=== PATIENT | male | born 1940 | race Caucasian/White ===

== ENCOUNTER 2020-11-03 11:46 | Outpatient (CLI) | payer MEDICARE, SELFPAY | END 2020-11-03 11:47 | disposition home or self-care (01) | LOC: ANHCOVIDVC 11:46 | PROVIDERS: PCP Family Medicine; Visit Provider Family Medicine | DX: Z23 Encounter for immunization (principal) | CPT/HCPCS: 0001A; 91300 ==

== ENCOUNTER 2020-11-24 11:23 | Outpatient (CLI) | payer MEDICARE, SELFPAY | END 2020-11-24 11:24 | disposition home or self-care (01) | LOC: ANHCOVIDVC 11:23 | PROVIDERS: PCP Family Medicine | DX: Z23 Encounter for immunization (principal) | CPT/HCPCS: 0002A; 91300 ==

== ENCOUNTER 2021-04-15 18:52 | Observation (INO) | payer MEDICARE, SELFPAY ==
--- NOTE | ~2021-04-15 | CT_ITS ---
EXAMINATION: CT abdomen pelvis wo con DATE: 04/15/2021 19:51 INDICATION: Nephrolithiasis presenting with flank pain and decreased urination. TECHNIQUE: Computed tomography (CT) of the abdomen and pelvis was performed without intravenous contr ast. Automated exposure control and iterative reconstruction technique were employed. The dose-length product was 270.40 mGy-cm. COMPARISON: 09/15/2016 FINDINGS: Prominent eventration of the right hemidiaphragm with mild right basilar atelectasis. Heart size is n ormal. Atherosclerotic coronary artery calcifications. Aortic valve calcification. No pericardial or pleural effusion. Small sliding-type hiatal hernia. Cholecystectomy clips at the gallbladder fossa. L iver, spleen, pancreas and bilateral adrenal glands are normal. Postoperative change of prior partial left nephrectomy with suture lines along the lower pole of the left kidney. Bilateral renal cysts me asuring up to 5.7 cm on the right and 2.6 cm on the left. 3 mm nonobstructing stones at the upper jie e of the left kidney and at a middle calyx of the right kidney. 4-5 mm stone at the left ureterovesic ular junction with mild right hydroureteronephrosis. There are couple additional 1 mm and 3 mm likely recently passed bones located slightly more anterior within the immediately adjacent bladder. Prosta tomegaly. There is moderate colonic diverticulosis with a sigmoid predominance. There is no adjacent inflammatory change to suggest diverticulitis. Small bowel and appendix are normal. No free intraper itoneal gas or fluid. No pathologically enlarged abdominal or pelvic lymphadenopathy. There is calcif ied atherosclerosis of the aorta and many of the other arteries. Mild lumbar spondylosis and mild melanie ateral hip osteoarthritis. IMPRESSION: 1. Bilateral nephrolithiasis with obstructing 4-5 mm stone at the right ureterovesicular junction wit h mild right hydroureteronephrosis. 2. Small sliding-type hiatal hernia. 3. Prominent sigmoid diverticulosis. 4. Prostatomegaly. Reviewed, dictated and finalized at location A. IMPRESSION: 1. Bilateral nephrolithiasis with obstructing 4-5 mm stone at the right uretero vesicular junction with mild right hydroureteronephrosis. 2. Small sliding-type hiatal hernia. 3. Prominent sigmoid diverticulosis. 4. Prostatomegaly.
--- NOTE | ~2021-04-15 | XR_ITS ---
EXAMINATION: XR stent kub - surgery DATE: 04/16/2021 14:40 INDICATION: Right ureteral stone extraction and stent placement TECHNIQUE: 4 fluoroscopic images of the abdomen and pelvis were obtained during procedure performed b tanner Garcia. Radiologist was not present for the imaging or procedure. The amount of fluoroscopy time used during this procedure was 0.9 minutes. COMPARISON: CT dated 04/15/2021 FINDINGS: Images demonstrate placement of a right internal ureteral stent with loops formed over the expected l ocation of the right renal pelvis and the bladder. No stones seen along the course of the stent sugge sting extraction of the previously seen stones at the right ureterovesicular junction/bladder. A coup le unchanged small phleboliths in the left hemipelvis. IMPRESSION: 1. Right internal ureteral stent placement in expected position with likely extraction of the previou sly seen right UVJ/bladder stones. See procedure note for further detail. Reviewed, dictated and finalized at location A. IMPRESSION: 1. Right internal ureteral stent placement in expected position with likely ext raction of the previously seen right UVJ/bladder stones. See procedure note for further detail.
[2021-04-15 19:24] VITALS: BP 167/81; PULSE 66; RESP 16; TEMP 36.4; O2SAT 98
[2021-04-15 19:42] LABS: Basophils Percent Auto 0.3 % (0.2-1.2); Eosinophils Absolute Auto 0.3 K/mm3 (0-0.3); Eosinophils Percent Auto 3.3 % (0-4.4); Hematocrit 41.3 % (42.0-52.0); Hemoglobin 13.4 g/dL (14.0-18.0); Immature Granulocyte Absolute 0.04 K/mm3 (0.00-0.031); Immature Granulocyte Percent A 0.4 % (0-0.5); Lymphocytes Absolute Auto 0.98 K/mm3 (0.9-3.2); Lymphocytes Percent Auto 10.8 % (18.3-44.2); Mean Corpuscular HGB Conc 32.4 g/dl (32-36); Mean Corpuscular Hemoglobin 30.9 pg (26-34); Mean Corpuscular Volume 95.2 fl (80-100); Mean Platelet Volume 10.4 fl (7.4-10.4); Monocytes Percent Auto 11.1 % (2.6-8.5); Neutrophils Absolute Auto 6.7 K/mm3 (1.3-6.7); Neutrophils Percent Auto 74.1 % (45.5-73.1); Platelet Count Result 147 k/mm3 (150-375); Red Blood Count 4.34 M/mm3 (4.6-6.20); Red Cell Distribution Width 12.9 % (11.5-14.5); White Blood Count 9.1 K/mm3 (4.5-10.0)
[2021-04-15 19:55] LABS: Anion Gap 6 mmol/L (8-16); Blood Urea Nitrogen 22 mg/dL (9-20); Calcium 9.4 mg/dL (8.4-10.2); Carbon Dioxide 28 mmol/L (22-30); Chloride 107 mmol/L (98-107); Estimated CRCL calculation 47 ml/min; Estimated Glomerular Filt Rate > 60; Glucose 151 mg/dL (65-110); Potassium 4.2 mmol/L (3.4-5.0); Sodium 141 mmol/L (137-145)
[2021-04-15 22:24] VITALS: BP 192/63; PULSE 61; RESP 20; O2SAT 94
--- NOTE | 2021-04-15 22:24 | ED.BACK ---
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 History of kidney stone. Patient denies any fever, chills, or abdominal pain. Patient is fully vaccinated for COVID-19. Related Data Home Medications Medication Instructions Recorded Confirmed amlodipine 5 mg tablet 5 mg PO DAILY 08/09/19 10/28/20 nitroglycerin 0.4 mg sublingual 0.4 mg SUBLINGUAL Q5M PRN 08/09/19 10/28/20 tablet vit C 250 mg-vit E 90 mg-zinc 40 1 tablet PO BID 08/09/19 10/28/20 mg-copper 1 [id number] capsule aspirin 81 mg tablet,delayed 81 mg PO DAILY 08/15/19 10/28/20 release multivitamin 1 tablet PO DAILY 08/15/19 10/28/20 omega-3 fatty acids-fish oil 360 1 cap PO DAILY 08/15/19 10/28/20 mg-1,200 mg capsule vitamin B complex 1 tablet PO DAILY 08/15/19 10/28/20 antiarthritic combination no.2 900 mg PO 10/28/20 10/28/20 mg tablet carvedilol 25 mg tablet 12.5 mg PO Q12H tablet 10/28/20 10/28/20 lisinopril 40 mg tablet 20 mg PO DAILY tablet 10/28/20 10/28/20 Allergies Allergy/AdvReac Type Severity Reaction Status Date / Time No Known Allergies Allergy Verified 04/15/21 19:28 Review of Systems Review of Systems: CONSTITUTIONAL: Denies fever, chills, or sweats. EYES: Denies visual changes, redness, or discharge. ENT: Denies rhinorrhea, congestion, sore throat, or otalgia. CARDIOVASCULAR: Denies chest pain, palpitations, or edema. RESPIRATORY: Denies cough or dyspnea. GASTROINTESTINAL: Denies abdominal pain, nausea, vomiting, or diarrhea. GENITOURINARY: Denies dysuria or hematuria. SKIN: Denies rash or itching. MUSCULOSKELETAL: Denies back pain, joint pain, or myalgia. NEUROLOGIC: Denies headache, numbness, or weakness. PSYCHIATRIC: Denies anxiety or depression. 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 History of kidney cancer History of kidney stones Hypertension with heart disease IBS (irritable bowel syndrome) IFG (impaired fasting glucose) Macular degeneration, age related, nonexudative Neoplasm of left kidney (~2015) Osteoarthritis Thyroid disorder Surgical History Surgical History History of cardiac cath (~04/22/08) History of colonoscopy (~10/17/07) Hx of cholecystectomy (~2007) S/P triple vessel bypass (~08/02/10) Family History Family History Sibling Family history of cardiovascular disease Family history of coronary artery disease Mother Diabetes mellitus Family history of Alzheimer's disease Family history of coronary artery disease Father Family history of lung cancer Social History Social History Smoking status: Never smoker Second hand tobacco smoke exposure: No Alcohol intake: never Substance use: never Substance use type: does not use Gender identity (if verbalized by the patient): Male Exam Narrative: General appearance: Well-developed, well-nourished Skin: Normal color Head: Normocephalic, nontraumatic Eyes: Clear conjunctiva ENT: Oropharynx normal, ears normal, nose normal Neck: Supple, nontender Chest and respiratory: Airway patent, no respiratory distress, no accessory muscle use Heart: Regular rate/rhythm Abdomen: Soft, nontender, no organomegaly, quiet bowel sounds Vascular: Normal peripheral pulses, normal capillary refill. Musculoskeletal: Normal range of motion, nontender back Neurologic: Alert and oriented ?3, RADIOLOGY ORDERLY is normal as tested, no gross motor deficit
[2021-04-15] MEDS: ONDANSETRON INJ 4 MG/2 ML VIAL IV PUSH (23:00)
[2021-04-15] MEDS: SODIUM CHLORIDE 0.9% IV 1,000 ML 500 ML IV CONT (23:00)
[2021-04-15] MEDS: MORPHINE SULFATE (*CRX) 4 MG/ML INJ IV PUSH (23:00)
[2021-04-15] MEDS: KETOROLAC 15 MG/ML VIAL (*BKC) IV PUSH (23:09)
[2021-04-15] MEDS: TAMSULOSIN HCL 0.4 MG CAPSULE PO (23:09)
[2021-04-15 23:44] LABS: Add Urine Microscopic? YES; Appearance Urine Clear (Clear); Bilirubin Urine Negative (Negative); Blood Urine 2+ (Negative); Color Urine Yellow (Yellow); Glucose Urine UA Negative (Negative); Ketones Urine Negative (Negative); Leukocyte Esterase Ur Negative LEU/UL (Negative); Mucus Urine Rare /lpf; Nitrate Urine Negative (Negative); Protein Urine Negative (Negative); RBC Urine 51-75 /hpf (0-2); Specific Grav Ur 1.018 (1.001-1.035); Squamous Epithelial Cell Urine Rare /hpf (Few); Urobilinogen Urine Negative mg/dL (<2.0)
[2021-04-16] VITALS (9 sets, daily range): BP systolic 120–186; BP diastolic 46–78; PULSE 52–68; RESP 11–20; TEMP 36.2–36.8; O2SAT 93–100; BMI 26.0
[2021-04-16] MEDS: TAMSULOSIN HCL 0.4 MG CAPSULE PO (01:04)
--- NOTE | 2021-04-16 02:02 | PC.NURSE ---
This patient, Richie Cantrell, was admitted to 3 Med Surg Room 303-01 @ 01:15 Patient/family oriented to hospital policies and general routines including ID bracelet, bed and alarms, visiting hours, pain management, procedures, bathroom and other care routines, personal items, smoking policy, room service/diet, and visiting hours. Information on how to activate the Rapid Response Team has been discussed. Patient/Family are encouraged to report perceived risks to care and to ask questions if they do not understand what they are told or what they should do.
--- NOTE | 2021-04-16 02:05 | PM.IMHP ---
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 He has a history of kidney stones in the past. He denies any fever chills vomiting. Or abdominal pain. He had similar pain in the past and evaluation at that time was found to have renal cell carcinoma for which he had a partial nephrectomy done in the past. He reports there is no blood in his urine but he felt some difficulty in urination since the pain started. On ER evaluation he had a CT scan done which showed bilateral nephrolithiasis with obstructing 4-5 mm stone at the right ureterovesicular junction with mild right hydro ureteral nephrosis along with prostatomegaly prominent sigmoid diverticulosis and small sliding-type hiatal hernia. His urine does show evidence of microscopic hematuria. Review of Systems Review of Systems: - CONSTITUTIONAL: Denies weight loss, fever and chills. - HEENT: Denies changes in vision and hearing - RESPIRATORY: Denies SOB and cough. - CV: Denies palpitations and CP. - GI: Denies abdominal pain, nausea, vomiting and diarrhea. - : Reports dysuria and urinary frequency. No hematuria reports flank pain - MSK: Denies myalgia and joint pain. - SKIN: Denies rash and pruritus. - NEUROLOGICAL: Denies headache and syncope. - PSYCHIATRIC: Denies recent changes in mood. Denies anxiety and depression. 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 History of kidney cancer History of kidney stones Hypertension with heart disease IBS (irritable bowel syndrome) IFG (impaired fasting glucose) Macular degeneration, age related, nonexudative Neoplasm of left kidney (~2015) Osteoarthritis Thyroid disorder Surgical History Surgical History History of cardiac cath (~04/22/08) History of colonoscopy (~10/17/07) Hx of cholecystectomy (~2007) S/P triple vessel bypass (~08/02/10) Family History Family History Sibling Family history of cardiovascular disease Family history of coronary artery disease Mother Diabetes mellitus Family history of Alzheimer's disease Family history of coronary artery disease Father Family history of lung cancer Social History Social History Smoking status: Never smoker Second hand tobacco smoke exposure: No Alcohol intake: never Substance use: never Substance use type: does not use Gender identity (if verbalized by the patient): Male Meds Home Medications and Allergies Home Medications Medication Instructions Recorded Confirmed Type amlodipine 5 mg tablet 5 mg PO DAILY 08/09/19 10/28/20 History nitroglycerin 0.4 mg sublingual 0.4 mg SUBLINGUAL Q5M PRN 08/09/19 10/28/20 History tablet vit C 250 mg-vit E 90 mg-zinc 40 1 tablet PO BID 08/09/19 10/28/20 History mg-copper 1 [id number] capsule aspirin 81 mg tablet,delayed 81 mg PO DAILY 08/15/19 10/28/20 History release multivitamin 1 tablet PO DAILY 08/15/19 10/28/20 History omega-3 fatty acids-fish oil 360 1 cap PO DAILY 08/15/19 10/28/20 History mg-1,200 mg capsule vitamin B complex 1 tablet PO DAILY 08/15/19 10/28/20 History atorvastatin 20 mg tablet 20 mg PO DAILY #90 tablet 11/15/19 10/28/20 Rx finasteride 5 mg tablet 5 mg PO DAILY #90 tablet 07/23/20 10/28/20 Rx antiarthritic combination no.2 900 mg PO 10/28/20 10/28/20 History mg tablet carvedilol 25 mg tablet 12.5 mg PO Q12H tablet 10/28/20
--- NOTE | 2021-04-16 02:42 | PC.NURSE ---
mayra per Dr. Blair for RN to change resuscitation status per patient's request
[2021-04-16] MEDS: SODIUM CHLORIDE 0.9% IV 1,000 ML 75 ML IV CONT (03:52)
--- NOTE | 2021-04-16 09:54 | WPDURCON ---
Assessment and Plan Assessment and plan (1) Right ureteral stone: Code(s): N20.1 - Calculus of ureter Status: Acute Assessment and Plan: Cystoscopy, right ureteroscopy with stone extraction, possible right ureteral stent placement this morning. Discharge later today, if otherwise medically ready. Urology Consult Note HPI Date Seen: 04/16/21 Requesting Physician: Cheikh Blair MD Primary Care Provider: Jake Granados MD Consult Narrative Narrative: Richie Cantrell is a 80 year old male who passed a ureteral stone spontaneously ~20 years ago, now presents with lower abdominal pain and nausea. He denies fever/chill or gross hematuria. CT-abd/pelvis shows an obstructing 4mm right distal ureteral stone. 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 History of kidney cancer History of kidney stones Hypertension with heart disease IBS (irritable bowel syndrome) IFG (impaired fasting glucose) Macular degeneration, age related, nonexudative Neoplasm of left kidney (~2015) Osteoarthritis Thyroid disorder Surgical History Surgical History History of cardiac cath (~04/22/08) History of colonoscopy (~10/17/07) Hx of cholecystectomy (~2007) S/P triple vessel bypass (~08/02/10) Family History Family History Sibling Family history of cardiovascular disease Family history of coronary artery disease Mother Diabetes mellitus Family history of Alzheimer's disease Family history of coronary artery disease Father Family history of lung cancer Social History Social History Smoking status: Never smoker Second hand tobacco smoke exposure: No Alcohol intake: never Substance use: never Substance use type: does not use Gender identity (if verbalized by the patient): Male Spiritual care concerns: No Meds Home Medications and Allergies Home Medications Medication Instructions Recorded Confirmed Type amlodipine 5 mg tablet 5 mg PO DAILY 08/09/19 04/16/21 History nitroglycerin 0.4 mg sublingual 0.4 mg SUBLINGUAL Q5M PRN 08/09/19 04/16/21 History tablet vit C 250 mg-vit E 90 mg-zinc 40 1 tablet PO BID 08/09/19 04/16/21 History mg-copper 1 sw-[id number] capsule aspirin 81 mg tablet,delayed 81 mg PO DAILY 08/15/19 04/16/21 History release multivitamin 1 tablet PO DAILY 08/15/19 04/16/21 History omega-3 fatty acids-fish oil 360 1 cap PO DAILY 08/15/19 04/16/21 History mg-1,200 mg capsule vitamin B complex 1 tablet PO DAILY 08/15/19 04/16/21 History atorvastatin 20 mg tablet 20 mg PO DAILY #90 tablet 11/15/19 04/16/21 Rx finasteride 5 mg tablet 5 mg PO DAILY #90 tablet 07/23/20 04/16/21 Rx antiarthritic combination no.2 900 900 mg PO DAILY 10/28/20 04/16/21 History mg tablet carvedilol 25 mg tablet 12.5 mg PO Q12H tablet 10/28/20 04/16/21 History lisinopril 40 mg tablet 20 mg PO DAILY tablet 10/28/20 04/16/21 History escitalopram oxalate 10 mg tablet 10 mg PO DAILY #90 tablet 11/19/20 04/16/21 Rx allopurinol 100 mg tablet 100 mg PO DAILY #90 tablet 01/04/21 04/16/21 Rx levothyroxine [Euthyrox] 75 mcg PO DAILY 04/16/21 04/16/21 History Allergies Allergy/AdvReac Type Severity Reaction Status Date / Time No Known Allergies Allergy Verified 04/16/21 02:41 Vital Signs Vital Signs - 24 hr 04/15/21 19:24 04/15/21
--- NOTE | 2021-04-16 09:59 | WPDHPUPDATE1 ---
History and Physical Update Update Date/Time: 04/16/21 09:59 History and Physical has been reviewed, including an updated exam of the patient. There are NO changes in the patient's condition. Risks, benefits, and alternatives have been discussed and questions answered. Patient agrees to proceed with procedure.
--- NOTE | 2021-04-16 12:05 | PC.NURSE ---
pt to OR via stretcher, here to accompany pt
[2021-04-16] MEDS: LACTATED RINGERS 1,000 ML 30 ML IV CONT (12:42)
--- NOTE | 2021-04-16 12:54 | WPDANESEPPF ---
Anes - Initial Pre Proc Eval Procedure: Operation Date: 04/16/21 13:30 Proposed Procedures p Cystoscopy, Right Ureteroscopy with Stone Extraction, Possible Right Ureteral Stent Placement - Naman Reyez MD Date/Time: 04/16/21 12:54 Surgeon: Cheikh Blair MD Pre Op Diagnosis: Left Ureterolithiasis Patient Data Age: 80 Gender: M Height: 1.75 m Weight: 80 kg Last Vital Signs Temp 36.7 C 04/16/21 12:40 Pulse 59 L 04/16/21 12:40 Resp 20 04/16/21 12:40 BP 151/46 H 04/16/21 12:40 Pulse Ox 97 04/16/21 12:40 Allergies Allergy/AdvReac Type Severity Reaction Status Date / Time No Known Allergies Allergy Verified 04/16/21 02:41 Home Medications Medication Instructions Recorded Confirmed Type amlodipine 5 mg tablet 5 mg PO DAILY 08/09/19 04/16/21 History nitroglycerin 0.4 mg sublingual 0.4 mg SUBLINGUAL Q5M PRN 08/09/19 04/16/21 History tablet vit C 250 mg-vit E 90 mg-zinc 40 1 tablet PO BID 08/09/19 04/16/21 History mg-copper 1 [id number]-mdirsb-mdueri capsule aspirin 81 mg tablet,delayed 81 mg PO DAILY 08/15/19 04/16/21 History release multivitamin 1 tablet PO DAILY 08/15/19 04/16/21 History omega-3 fatty acids-fish oil 360 1 cap PO DAILY 08/15/19 04/16/21 History mg-1,200 mg capsule vitamin B complex 1 tablet PO DAILY 08/15/19 04/16/21 History atorvastatin 20 mg tablet 20 mg PO DAILY #90 tablet 11/15/19 04/16/21 Rx finasteride 5 mg tablet 5 mg PO DAILY #90 tablet 07/23/20 04/16/21 Rx antiarthritic combination no.2 900 900 mg PO DAILY 10/28/20 04/16/21 History mg tablet carvedilol 25 mg tablet 12.5 mg PO Q12H tablet 10/28/20 04/16/21 History lisinopril 40 mg tablet 20 mg PO DAILY tablet 10/28/20 04/16/21 History escitalopram oxalate 10 mg tablet 10 mg PO DAILY #90 tablet 11/19/20 04/16/21 Rx allopurinol 100 mg tablet 100 mg PO DAILY #90 tablet 01/04/21 04/16/21 Rx levothyroxine [Euthyrox] 75 mcg PO DAILY 04/16/21 04/16/21 History Laboratory Tests 04/15/21 04/15/21 04/15/21 19:34 19:34 23:19 WBC 9.1 K/mm3 K/mm3 (4.5-10.0) RBC 4.34 M/mm3 L M/mm3 (4.6-6.20) Hgb 13.4 g/dL L g/dL (14.0-18.0) Hct 41.3 % L % (42.0-52.0) MCV 95.2 fl fl (80-100) MCH 30.9 pg pg (26-34) MCHC 32.4 g/dl g/dl (32-36) RDW 12.9 % % (11.5-14.5) Plt Count 147 k/mm3 L k/mm3 (150-375) MPV 10.4 fl fl (7.4-10.4) Immature Gran % (Auto) 0.4 % % (0-0.5) Neut % (Auto) 74.1 % H % (45.5-73.1) Lymph % (Auto) 10.8 % L % (18.3-44.2) Fountain % (Auto) 11.1 % H % (2.6-8.5) Eos % (Auto) 3.3 % % (0-4.4) Baso % (Auto) 0.3 % % (0.2-1.2) Lymph # (Auto) 0.98 K/mm3 K/mm3 (0.9-3.2) Fountain # (Auto) 1.0 K/mm3 H K/mm3 (0.1-0.6) Eos # (Auto) 0.3 K/mm3 K/mm3 (0-0.3) Baso # (Auto) 0.0 K/mm3 K/mm3 (0.0-0.1) Abs Immat Gran (auto) 0.04 K/mm3 H K/mm3 (0.00-0.031) Absolute Neuts (auto) 6.7 K/mm3 K/mm3 (1.3-6.7) Absolute Nucleated RBC 0.0 K/mm3 K/mm3 (0.0-0.012) Nucleated RBC % 0.0 % % (0.0-0.2) % Immature Plt Fraction 3.0 % % (0.9-11.2) Sodium 141 mmol/L mmol/L (137-145) Potassium 4.2 mmol/L mmol/L (3.4-5.0) Chloride 107 mmol/L mmol/L (98-107) Carbon Dioxide 28 mmol/L mmol/L (22-30) Anion Gap 6 mmol/L L mmol/L (8-16) BUN 22 mg/dL H mg/dL (9-20) Creatinine 1.10 mg/dL mg/dL (0.7-1.3) Estim Creat Clear Calc 47 ml/min ml/min Estimated GFR > 60 (59 - ) Glucose 151 mg/dL H mg/dL (65-110) Calcium 9.4 mg/dL mg/dL (8.4-10.2) Urine Color Yellow (Yellow) Urine Appearance Clear (Clear) Urine pH 6.0 (5.0-9.0) Ur Specific [place] 1.018 (1.001-1.035) Urine Protein Negative mg/
--- NOTE | 2021-04-16 14:40 | W.PM.PROC2 ---
Procedure Note - Detailed Date of Procedure 04/16/21 Pre-op Diagnosis Right Ureteral Stone Post-op Diagnosis same Procedure Performed Cystoscopy, right ureteroscopy with stone extraction and right ureteral stent placement Surgeon Naman Reyez MD Anesthesia general Description of Procedure The patient was brought to the operative suite where he is prepped and draped in a routine sterile fashion while in the dorsal lithotomy position after the uneventful induction of a general LMA anesthetic. A 19F rigid cystoscope was placed in the bladder. There are no urethral strictures. His prostatic urethra measures, approximately, 2.5cm with small median lobe enlargement. The bladder mucosa was endoscopically normal without hyperemia or neoplasm. There was a single, orthotopic ureteral orifice bilaterally. A 0.035 glidewire was advanced into the right renal pelvis under fluoroscopy. The distal ureter was dilated with an 8F/10F ureteral dilator. Ureteroscopy was undertaken with a short tapered semi-rigid ureteroscope. There was significant ureteral edema and, because of that, the size of the stone and the extent of manipulation, I opted to redilate with a 10cm ureteral balloon. Upon repeat ureteroscopy I was able to extract the stone using a 1.9F Escape, disposable stone basket. Due to the extent of this manipulation I did place a 4.8F double-J ureteral stent. The proximal coil of the stent was confirmed to be in the renal pelvis and the distal coil in the bladder. The patient's bladder was emptied and he was taken to the recovery room having tolerated this procedure well. Estimated Blood Loss 0 Urine Output 400 Packing No Pathology yes Complications No immediate complications Condition stable Disposition PACU
--- NOTE | 2021-04-16 15:29 | SUR.PHASEI ---
1530 sbar faxed floor notified
--- NOTE | 2021-04-16 15:40 | PC.NURSE ---
pt returned from PACU, reviewed plan of care with pt and
--- NOTE | 2021-04-16 18:10 | PM.SD2 ---
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 He has a history of kidney stones in the past. He denies any fever chills vomiting. Or abdominal pain. He had similar pain in the past and evaluation at that time was found to have renal cell carcinoma for which he had a partial nephrectomy done in the past. He reports there is no blood in his urine but he felt some difficulty in urination since the pain started. On ER evaluation he had a CT scan done which showed bilateral nephrolithiasis with obstructing 4-5 mm stone at the right ureterovesicular junction with mild right hydro ureteral nephrosis along with prostatomegaly prominent sigmoid diverticulosis and small sliding-type hiatal hernia. His urine does show evidence of microscopic hematuria. 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 History of kidney cancer History of kidney stones Hypertension with heart disease IBS (irritable bowel syndrome) IFG (impaired fasting glucose) Macular degeneration, age related, nonexudative Neoplasm of left kidney (~2015) Osteoarthritis Thyroid disorder Surgical History Surgical History History of cardiac cath (~04/22/08) History of colonoscopy (~10/17/07) Hx of cholecystectomy (~2007) S/P triple vessel bypass (~08/02/10) Family History Family History Sibling Family history of cardiovascular disease Family history of coronary artery disease Mother Diabetes mellitus Family history of Alzheimer's disease Family history of coronary artery disease Father Family history of lung cancer Social History Social History Smoking status: Never smoker Second hand tobacco smoke exposure: No Alcohol intake: never Substance use: never Substance use type: does not use Gender identity (if verbalized by the patient): Male Spiritual care concerns: No Same Day Admit/Disch: Med Pre-admit Medications Home Medications Medication Instructions Recorded Confirmed Type amlodipine 5 mg tablet 5 mg PO DAILY 08/09/19 04/16/21 History nitroglycerin 0.4 mg sublingual 0.4 mg SUBLINGUAL Q5M PRN 08/09/19 04/16/21 History tablet vit C 250 mg-vit E 90 mg-zinc 40 1 tablet PO BID 08/09/19 04/16/21 History mg-copper 1 vh-vykwkh-ochoda capsule aspirin 81 mg tablet,delayed 81 mg PO DAILY 08/15/19 04/16/21 History release multivitamin 1 tablet PO DAILY 08/15/19 04/16/21 History omega-3 fatty acids-fish oil 360 1 cap PO DAILY 08/15/19 04/16/21 History mg-1,200 mg capsule vitamin B complex 1 tablet PO DAILY 08/15/19 04/16/21 History atorvastatin 20 mg tablet 20 mg PO DAILY #90 tablet 11/15/19 04/16/21 Rx finasteride 5 mg tablet 5 mg PO DAILY #90 tablet 07/23/20 04/16/21 Rx antiarthritic combination no.2 900 900 mg PO DAILY 10/28/20 04/16/21 History mg tablet carvedilol 25 mg tablet 12.5 mg PO Q12H tablet 10/28/20 04/16/21 History lisinopril 40 mg tablet 20 mg PO DAILY tablet 10/28/20 04/16/21 History escitalopram oxalate 10 mg tablet 10 mg PO DAILY #90 tablet 11/19/20 04/16/21 Rx allopurinol 100 mg tablet 100 mg PO DAILY #90 tablet 01/04/21 04/16/21 Rx levothyroxine [Euthyrox] 75 mcg PO DAILY 04/16/21 04/16/21 History Exam Narrative: GENERAL: The patient is well developed, not in acute distress HEENT: Nonicteric sclerae, PERRLA, EOMI. Oropharynx clear. Moist mucous membranes. Conjunctivae appear well perfused. CHEST: Chest wall is nontender. HEART: Regular rate and rhythm without murmur, rubs, or gallops LUNGS: Clear to auscultation bilaterally. no respiratory distress ABDOMEN: Soft, po
== END 2021-04-16 18:43 | disposition home or self-care (01) ==
LOC: ANHED 04-16 00:22 → ANH3MEDSUR 04-16 02:44
PROVIDERS: Urology; Admitting Provider Internal Medicine; Emergency Provider Emergency Medicine; PCP Family Medicine; Visit Provider Hospitalist
PROC: (CPT 52352; principal; 2021-04-16 13:30)
DX: N13.2 Hydronephrosis with renal and ureteral calculous obstruction (principal); I11.9 Hypertensive heart disease without heart failure; K58.9 Irritable bowel syndrome, unspecified; H35.30 Unspecified macular degeneration; I25.10 Atherosclerotic heart disease of native coronary artery without angina pectoris; E03.9 Hypothyroidism, unspecified; E78.2 Mixed hyperlipidemia; F41.9 Anxiety disorder, unspecified; Z79.82 Long term (current) use of aspirin; Z95.1 Presence of aortocoronary bypass graft; Z85.528 Personal history of other malignant neoplasm of kidney; Z90.5 Acquired absence of kidney
CPT/HCPCS: 52332; 52352; 36415; 74176; 80048; 81001; 82365; 85025; 85055; 88300; 96361; 96374; 96375; 99285; A9270; C1726; C1769; C2617; G0378; J1100; J1885; J2270; J2405; J2704; J3010; J7030; J7120

== ENCOUNTER 2021-05-19 15:31 | Emergency (ER) | payer MEDICARE, SELFPAY ==
--- NOTE | 2021-05-19 15:36 | ED.SKABFB ---
HPI - Skin/Abscess/Foreign Bdy General Chief complaint: Skin/Abscess/Foreign Body Stated complaint: Insect Bite Lt Forearm Time Seen by Provider: 05/19/21 15:37 Source: patient Mode of arrival: ambulatory Limitations: no limitations History of Present Illness HPI narrative: Richie Cantrell is an 80 yo male with a PMH of HTN, gout, high cholesterol, depression, BPH, hypothyroid, who [facility] with a insect bite of his left forearm. 1 cm mildly indurated area on left forearm on the dorsum side; has been using hydrocortisone and has not significantly improved since he first noticed it on Monday Related Data Home Medications Medication Instructions Recorded Confirmed amlodipine 5 mg tablet 5 mg PO DAILY 08/09/19 05/19/21 nitroglycerin 0.4 mg sublingual 0.4 mg SUBLINGUAL Q5M PRN 08/09/19 05/19/21 tablet aspirin 81 mg tablet,delayed 81 mg PO DAILY 08/15/19 05/19/21 release multivitamin 1 tablet PO DAILY 08/15/19 05/19/21 antiarthritic combination no.2 900 900 mg PO DAILY 10/28/20 05/19/21 mg tablet carvedilol 25 mg tablet 12.5 mg PO Q12H tablet 10/28/20 05/19/21 lisinopril 40 mg tablet 20 mg PO DAILY tablet 10/28/20 05/19/21 levothyroxine [Euthyrox] 75 mcg PO DAILY 04/16/21 05/19/21 vit C,V-Ww-ssmth-lutein-zeaxan 1 tablet PO BID 05/19/21 05/19/21 [PreserVision AREDS-2] Allergies Allergy/AdvReac Type Severity Reaction Status Date / Time No Known Allergies Allergy Verified 05/19/21 15:37 Review of Systems Review of Systems: CONSTITUTIONAL: Denies fever, chills, sweats. EYES: Denies visual changes, redness, discharge. ENT: Denies rhinorrhea, congestion, sore throat, otalgia. CARDIOVASCULAR: Denies chest pain, palpitations, edema. RESPIRATORY: Denies dyspnea, wheezing, cough GASTROINTESTINAL: Denies abdominal pain, nausea, vomiting, diarrhea. GENITOURINARY: Denies dysuria, hematuria, abnormal discharge SKIN: Denies rash or itching. 1 cm indurated lesion on left forearm dorsum side-concerned is a spider bite NEUROLOGIC: Denies numbness, or focal weakness. PSYCHIATRIC: Denies anxiety or depression. 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 History of kidney cancer History of kidney stones Hypertension with heart disease IBS (irritable bowel syndrome) IFG (impaired fasting glucose) Macular degeneration, age related, nonexudative Neoplasm of left kidney (~2015) Osteoarthritis Thyroid disorder Surgical History Surgical History History of cardiac cath (~04/22/08) History of colonoscopy (~10/17/07) Hx of cholecystectomy (~2007) S/P triple vessel bypass (~08/02/10) Family History Family History Sibling Family history of cardiovascular disease Family history of coronary artery disease Mother Diabetes mellitus Family history of Alzheimer's disease Family history of coronary artery disease Father Family history of lung cancer Social History Social History Smoking status: Never smoker Second hand tobacco smoke exposure: Yes Alcohol intake: never Substance use: never Substance use type: does not use Gender identity (if verbalized by the patient): Male Sexual Orientation (if Verbalized by the Patient): Straight or Heterosexual Spiritual care concerns: No Comments At time of signature, I agree with nursing past medical, surgical, social and family history. There is no relevant family history pertinent to the presenting complaint. Exam Narrative: GENERAL: This is a well-nourished, well-developed patient, in mild distress. HEAD: normocephalic, atraumatic. EYES: Sclera clear/white. Vision is grossly intact. EARS: External ears normal. Hearing grossly intact. NOSE: External nose normal without nasal d
[2021-05-19 15:41] VITALS: BP 164/61; PULSE 61; RESP 20; TEMP 36.6
== END 2021-05-19 16:20 | disposition home or self-care (01) ==
PROVIDERS: Emergency Provider Nurse Practitioner; PCP Family Medicine
DX: L98.9 Disorder of the skin and subcutaneous tissue, unspecified (principal); E03.9 Hypothyroidism, unspecified; I11.9 Hypertensive heart disease without heart failure; Z79.82 Long term (current) use of aspirin
CPT/HCPCS: 99213; G0463

== ENCOUNTER 2021-07-06 09:51 | Outpatient (CLI) | payer MEDICARE, SELFPAY ==
--- NOTE | ~2021-07-06 | XR_ITS ---
EXAMINATION: XR abdomen/kub 1V INDICATION: Calculus of kidney with calculus ureter TECHNIQUE: Supine views of the abdomen were obtained on 2 radiographs. COMPARISON: 08/24/2015; CT, 04/15/2021 FINDINGS: There is a 5 mm stone of the right kidney stones of the left kidney measure up to 4 mm. No definite ureteral stones are identified. There are phleboliths of the left pelvis. The bowel gas mahesh rosario is normal. A moderate volume of colonic stool is present. There is an area of calcified fat necro sis right mid abdomen. IMPRESSION: 1. Bilateral nephrolithiasis. Reviewed, dictated and finalized at location B.
== END 2021-07-06 09:52 | disposition home or self-care (01) ==
LOC: ANHIMG 09:55
PROVIDERS: PCP Family Medicine; Visit Provider Urology
DX: N20.0 Calculus of kidney (principal)
CPT/HCPCS: 74018

== ENCOUNTER 2021-09-02 07:29 | Outpatient (CLI) | payer MEDICARE, SELFPAY ==
--- NOTE | ~2021-09-02 | US_ITS ---
EXAMINATION: US soft tissue abdomen EXAM DATE: 09/02/2021 08:17 INDICATION: K43.2 - Incisional hernia without obstruction or gangrene. TECHNIQUE: Multiple grayscale and Doppler images of the right lower quadrant soft tissue area of conc rosario were obtained (by a technologist who performed the scan) and subsequently reviewed. Correlation i s made to CT scan 04/15/2021. FINDINGS: No abdominal wall defect, or any or other sonographic abnormality identified at the area of concern. IMPRESSION: 1. Unremarkable ultrasound exam. Reviewed, dictated and finalized at location A. NDER LOADER
== END 2021-09-02 07:30 | disposition home or self-care (01) ==
LOC: ANHIMG 07:31
PROVIDERS: PCP Family Medicine; Visit Provider Family Medicine
DX: K43.2 Incisional hernia without obstruction or gangrene (principal); R19.01 Right upper quadrant abdominal swelling, mass and lump
CPT/HCPCS: 76705

== ENCOUNTER 2022-04-04 10:47 | Emergency (ER) | payer MEDICARE, SELFPAY ==
--- NOTE | 2022-04-04 11:07 | ED.NAVMDI ---
HPI - Nausea/Vomiting/Diarrhea General Chief complaint: Nausea/Vomiting/Diarrhea Stated complaint: diarrhea Time Seen by Provider: 04/04/22 11:30 Source: patient Mode of arrival: ambulatory Limitations: no limitations History of Present Illness HPI Narrative: Mr. Cantrell is a an 81-year-old male patient presenting to the clinic today with complaints of diarrhea x4 days. He also reports some stomach cramping prior to diarrhea episodes. States he has eaten lightly the last couple days and still having diarrhea every time he eats. He is having approximately 7-8 stools per day day. He denies any fever or chills. He rates his pain currently a 3 out of 10 and says it is a dull ache. He denies any nausea or vomiting. He is passing gas cautiously. Reports that he was outside prior to this starting collecting rain water with a shop vac so he feels as though he may have gotten a bacterial infection in his intestines. He denies feeling bloated. Related Data Home Medications Medication Instructions Recorded Confirmed nitroglycerin 0.4 mg sublingual 0.4 mg sublingual Q5M PRN Chest 08/09/19 04/04/22 tablet (Nitrostat) Pain aspirin 81 mg tablet,delayed 81 mg PO DAILY 08/15/19 04/04/22 release Allergies Allergy/AdvReac Type Severity Reaction Status Date / Time No Known Allergies Allergy Verified 04/04/22 11:26 Review of Systems Review of Systems: Pertinent positives per HPI. Patient denies any fever, chills, rash, headache, visual changes, dizziness, cough, runny nose, sore throat, shortness of breath, chest pain, palpitations, nausea, vomiting, constipation, or any urinary issues. 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 History of kidney cancer History of kidney stones Hypertension with heart disease IBS (irritable bowel syndrome) IFG (impaired fasting glucose) Macular degeneration, age related, nonexudative Neoplasm of left kidney (~2015) Osteoarthritis Thyroid disorder Surgical History Surgical History History of cardiac cath (~04/22/08) History of colonoscopy (~10/17/07) Hx of cholecystectomy (~2007) S/P triple vessel bypass (~08/02/10) Family History Family History Sibling Family history of cardiovascular disease Family history of coronary artery disease Mother Diabetes mellitus Family history of Alzheimer's disease Family history of coronary artery disease Father Family history of lung cancer Social History Social History Smoking status: Never smoker Second hand tobacco smoke exposure: Yes Alcohol intake: never Substance use: never Substance use type: does not use Gender identity (if verbalized by the patient): Male Sexual Orientation (if Verbalized by the Patient): Straight or Heterosexual Spiritual care concerns: No Comments At the time of my signature, I reviewed and agree with the nursing past medical, surgical, social, and family history. There is no relevant family history pertinent to the patient complaint. Exam Narrative: General: Well-developed, well nourished, in no apparent distress. Head: Normocephalic, atraumatic. Cardio: Regular rate and rhythm, s1 and s2 normal, no murmur appreciated. Resp: Clear to auscultation bilaterally, no rhonchi, rales, wheezing or rubs. Abdomen: Soft, pliable, bowel sounds present in all quadrants, mild general tenderness to palpation to upper and lower quadrants, no organomegly, no CVAT tenderness. Course Course Emergency Course: Portions of this record may have been created with voice recognition software. Level of Care: Express Care Visit Vital Signs Vital signs: Vital signs reviewed MDM - Nausea/Vomiting/Diarrhea MDM Narrati
[2022-04-04 11:13] VITALS: BP 114/47; PULSE 63; RESP 18; TEMP 36.3; O2SAT 97
== END 2022-04-04 11:50 | disposition home or self-care (01) ==
PROVIDERS: Emergency Provider Nurse Practitioner Family; PCP Family Medicine
DX: K52.9 Noninfective gastroenteritis and colitis, unspecified (principal); Z85.528 Personal history of other malignant neoplasm of kidney; I11.9 Hypertensive heart disease without heart failure; R73.01 Impaired fasting glucose; H35.30 Unspecified macular degeneration; Z95.1 Presence of aortocoronary bypass graft
CPT/HCPCS: 99213; G0463

== ENCOUNTER 2022-04-07 10:54 | Outpatient (CLI) | payer MEDICARE, SELFPAY ==
--- NOTE | ~2022-04-07 | CT_ITS ---
EXAMINATION: CT abdomen pelvis wo con DATE: 04/07/2022 11:30 INDICATION: Left lower quadrant abdominal pain. TECHNIQUE: Computed tomography (CT) of the abdomen and pelvis was performed without intravenous contr ast. Automated exposure control and iterative reconstruction technique were employed. The dose-length product was 533.91 mGy-cm. COMPARISON: CT abdomen and pelvis 04/15/2021 FINDINGS: The visualized portions of the lung bases demonstrate mild atelectasis. No pleural effusion . The heart size is normal. There are coronary artery calcifications. There are changes of coronary a rtery bypass grafting. No pericardial effusion. There is a small sliding hiatal hernia. The liver is normal. There are changes of cholecystectomy. The spleen, pancreas, and adrenal glands are normal. Th ere are cysts in the kidneys measuring up to 5.4 cm on the right. There are 2 stones in right kidney with the larger measuring 4 mm. There are changes of partial left nephrectomy. There are approximatel y 5 stones in left kidney measuring up to 5 mm. The prostate is severely enlarged. There are scattere d diverticula in the colon. There is wall thickening of the sigmoid colon with surrounding fat strand ing. There are no dilated loops of bowel. The appendix is normal. There are no pathologically enlarge d lymph nodes. There is no free intraperitoneal fluid. There is a left inguinal hernia containing fat . There is mild lumbar spondylosis. IMPRESSION: 1. Sigmoid colitis. Reviewed, dictated and finalized at location A. IMPRESSION: 1. Sigmoid colitis.
== END 2022-04-07 10:55 | disposition home or self-care (01) ==
PROVIDERS: PCP Family Medicine; Visit Provider Physician Assistant
DX: R10.9 Unspecified abdominal pain (principal); M47.816 Spondylosis without myelopathy or radiculopathy, lumbar region; R19.7 Diarrhea, unspecified; I25.10 Atherosclerotic heart disease of native coronary artery without angina pectoris; K52.89 Other specified noninfective gastroenteritis and colitis; K40.90 Unilateral inguinal hernia, without obstruction or gangrene, not specified as recurrent; N40.0 Benign prostatic hyperplasia without lower urinary tract symptoms; Z90.49 Acquired absence of other specified parts of digestive tract; K44.9 Diaphragmatic hernia without obstruction or gangrene
CPT/HCPCS: 74176

== ENCOUNTER 2022-09-02 14:55 | Outpatient (CLI) | payer MEDICARE, SELFPAY ==
--- NOTE | ~2022-09-02 | XR_ITS ---
EXAMINATION: XR abdomen/kub 1V DATE: 09/02/2022 15:19 INDICATION: Personal history of urinary calculi. TECHNIQUE: A supine view of the abdomen on 2 radiographs was obtained. COMPARISON: CT abdomen and pelvis 04/07/2022 FINDINGS: There are no dilated loops of bowel. There is a large volume of stool in the colon. Surgica l clips in the right upper quadrant are likely from cholecystectomy. The kidneys are obscured by mylene l. There is a 4 mm stone in right kidney. There are 5 mm and 3 mm stones in left kidney. There are ph leboliths in the pelvis. IMPRESSION: 1. Bilateral kidney stones. Reviewed, dictated and finalized at location A. L BEARING DRILLER IMPRESSION: 1. Bilateral kidney stones.
[2022-09-02 15:35] LABS: Add Urine Microscopic? NO; Appearance Urine Clear (Clear); Bilirubin Urine Negative (Negative); Blood Urine Negative (Negative); Color Urine Yellow (Yellow); Glucose Urine UA Negative (Negative); Ketones Urine Negative (Negative); Leukocyte Esterase Ur Negative LEU/UL (NEGATIVE); Nitrate Urine Negative (Negative); Protein Urine Negative (Negative); Specific Grav Ur 1.025 (1.001-1.035); Urobilinogen Urine 0.2 mg/dL (<2.0)
== END 2022-09-02 14:56 | disposition home or self-care (01) ==
PROVIDERS: PCP Family Medicine; Visit Provider Physician Assistant
DX: R10.9 Unspecified abdominal pain (principal); N20.0 Calculus of kidney
CPT/HCPCS: 74018; 81003

== ENCOUNTER 2022-12-01 15:42 | Emergency (ER) | payer MEDICARE, SELFPAY ==
[2022-12-01 15:50] VITALS: BP 143/60; PULSE 58; RESP 18; TEMP 36.6; O2SAT 97
--- NOTE | 2022-12-01 15:57 | ED.URI ---
HPI - URI/Sore Throat General Chief Complaint: Upper Respiratory Infection Stated Complaint: Cough,Congestion Time Seen by Provider: 12/01/22 15:57 Source: patient, RN notes reviewed and old records reviewed Mode of arrival: ambulatory Limitations: no limitations History of Present Illness HPI Narrative: 82-year-old male presents to the [facility] with complaints of cough and sinus congestion for 3 weeks. Had tried some Tylenol cold medicine. Denies any chest pain or shortness of breath. Denies fevers. Related Data Home Medications Medication Instructions Recorded Confirmed aspirin 81 mg tablet,delayed 81 mg PO DAILY 08/15/19 12/01/22 release B-complex with vitamin C 1 tablet PO DAILY 06/22/22 12/01/22 antiarthritic combination no.2 900 See Rx Instructions PO .COMPLEX 06/22/22 12/01/22 mg tablet (glucosamine-chondroitin) vitamins A,C,Z-ialj-edracj 4,296 1 cap PO BID 06/22/22 12/01/22 mcg-226 mg-90 mg capsule (PreserVision AREDS) Allergies Allergy/AdvReac Type Severity Reaction Status Date / Time No Known Allergies Allergy Verified 12/01/22 16:01 Review of Systems Review of Systems: All systems reviewed & are unremarkable except as noted in HPI and below Constitutional: Constitutional: Reports no additional constitutional complaints Eyes: Eyes: Reports no additional eye complaints ENT: Reports as per HPI and Reports nasal congestion Cardiovascular: Cardiovascular: Reports no additional cardiovascular complaints, Denies chest pain and Denies dyspnea Respiratory: Respiratory: Reports as per HPI, Denies chest congestion, Reports cough and Denies dyspnea Gastrointestinal: Gastrointestinal: Reports no additional gastrointestinal complaints, Denies abdominal pain, Denies nausea and Denies vomiting Musculoskeletal: Musculoskeletal: Reports no additional musculoskeletal complaints Integumentary/Breasts: Skin/Breast: Reports system reviewed and no additional complaints, except as docu Neurologic: Reports system reviewed and no additional complaints, except as documented Psychiatric: Psychiatric: Reports no additional psychiatric complaints Allergic/Immunologic: Allergic/Immunologic: Reports no additional allergic/immunologic complaints PMFSH Past Medical History Medical History Anxiety 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 History of kidney cancer History of kidney stones Hypertension with heart disease IBS (irritable bowel syndrome) IFG (impaired fasting glucose) Macular degeneration, age related, nonexudative Neoplasm of left kidney (~2015) Osteoarthritis Thyroid disorder Surgical History Surgical History History of cardiac cath (~04/22/08) History of colonoscopy (~10/17/07) Hx of cholecystectomy (~2007) S/P triple vessel bypass (~08/02/10) Family History Family History Sibling Family history of cardiovascular disease Family history of coronary artery disease Mother Diabetes mellitus Family history of Alzheimer's disease Family history of coronary artery disease Father Family history of lung cancer Social History Social History Smoking status: Never smoker Second hand tobacco smoke exposure: Yes Alcohol intake: never Substance use: never Substance use type: does not use Living arrangements: with family Occupation/Education: retired Gender identity (if verbalized by the patient): Male Sexual Orientation (if Verbalized by the Patient): Straight or Heterosexual Spiritual care concerns: No Comments At the time of my signature, I reviewed and agree with the nursing past medical, surgical, social, and family history. There is no relevant family history pertinent to the patient complaint. Exam Const: General: cooperative, healthy appearing,
== END 2022-12-01 16:10 | disposition home or self-care (01) ==
PROVIDERS: Emergency Provider Nurse Practitioner; PCP Family Medicine
DX: J32.9 Chronic sinusitis, unspecified (principal); J40 Bronchitis, not specified as acute or chronic; I10 Essential (primary) hypertension; R73.01 Impaired fasting glucose; M19.90 Unspecified osteoarthritis, unspecified site; E07.9 Disorder of thyroid, unspecified; H35.30 Unspecified macular degeneration; F41.9 Anxiety disorder, unspecified; Z85.528 Personal history of other malignant neoplasm of kidney; Z85.840 Personal history of malignant neoplasm of eye; Z95.1 Presence of aortocoronary bypass graft; Z79.82 Long term (current) use of aspirin
CPT/HCPCS: 99213; G0463

== ENCOUNTER 2023-03-17 14:57 | Outpatient (CLI) | payer MEDICARE, SELFPAY ==
--- NOTE | ~2023-03-17 | XR_ITS ---
EXAMINATION: XR abdomen/kub 1V DATE: 03/17/2023 15:13 INDICATION: Calculus of kidney. Calculus of ureter. TECHNIQUE: A supine view of the abdomen on 2 radiographs was obtained. COMPARISON: CT abdomen and pelvis 04/07/2022, abdomen radiographs 09/02/2022 FINDINGS: There are no dilated loops of bowel. There is a large volume of stool in the colon. There a re 5 mm and 3 mm stones in left kidney. There are phleboliths in left pelvis. IMPRESSION: 1. Left kidney stones. Reviewed, dictated and finalized at location E. IMPRESSION: 1. Left kidney stones.
== END 2023-03-17 14:58 | disposition home or self-care (01) ==
PROVIDERS: PCP Family Medicine; Visit Provider Urology
DX: N20.2 Calculus of kidney with calculus of ureter (principal)
CPT/HCPCS: 74018

== ENCOUNTER 2023-07-31 10:52 | Emergency (ER) | payer MEDICARE, SELFPAY ==
--- NOTE | ~2023-07-31 | XR_ITS ---
XR chest 2V 07/31/2023 11:20 Indication: Cough for one month Procedure: 2 view chest Comparison: 11/17/2017 Findings: Status post median sternotomy. Heart size normal. Patchy bilateral infiltrates. Elevated ri ght diaphragm. No pneumothorax. No acute osseous abnormality. Impression: 1: Patchy bilateral infiltrates, consistent with pneumonia. Reviewed, dictated and finalized at location B. INSPECTOR Impression: 1: Patchy bilateral infiltrates, consistent with pneumonia.
[2023-07-31 10:59] VITALS: BP 106/47; PULSE 63; RESP 16; TEMP 35.7; O2SAT 98
--- NOTE | 2023-07-31 11:29 | ED.URI ---
HPI - URI/Sore Throat General Chief Complaint: Upper Respiratory Infection Stated Complaint: Cough Time Seen by Provider: 07/31/23 11:23 Source: patient and RN notes reviewed Mode of arrival: ambulatory Limitations: no limitations History of Present Illness HPI Narrative: Patient presents today complaining of a one-month history of cough. He was diagnosed with COVID 1 month ago and states he has a persistent cough. Denies shortness of breath or recent fever. He has been taking Robitussin DM and using cough drops with little relief. No history of asthma or COPD. Related Data Home Medications Medication Instructions Recorded Confirmed aspirin 81 mg tablet,delayed 81 mg PO DAILY 08/15/19 07/31/23 release B-complex with vitamin C 1 tablet PO DAILY 06/22/22 07/31/23 antiarthritic combination no.2 900 See Rx Instructions PO .COMPLEX 06/22/22 07/31/23 mg tablet (glucosamine-chondroitin) vitamins A,C,S-elky-ibmqdp 4,296 1 cap PO BID 06/22/22 07/31/23 mcg-226 mg-90 mg capsule (PreserVision AREDS) Allergies Allergy/AdvReac Type Severity Reaction Status Date / Time No Known Allergies Allergy Verified 07/31/23 11:00 Review of Systems Review of Systems: CONSTITUTIONAL: Denies body aches, fever, chills, or sweats. EYES: Denies visual changes, redness, or discharge. ENT: Denies rhinorrhea, congestion, sore throat, or otalgia. CARDIOVASCULAR: Denies chest pain, palpitations, or edema. RESPIRATORY: Denies dyspnea.+ cough GASTROINTESTINAL: Denies abdominal pain, nausea, vomiting, or diarrhea. GENITOURINARY: Denies dysuria or hematuria. SKIN: Denies rash, itching, or wounds. MUSCULOSKELETAL: Denies back pain, joint pain, or myalgia. NEUROLOGIC: Denies headache, numbness, tingling, or weakness. PSYCH: Denies depression or anxiety. 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 History of kidney cancer History of kidney stones Hypertension with heart disease IBS (irritable bowel syndrome) IFG (impaired fasting glucose) Macular degeneration, age related, nonexudative Neoplasm of left kidney (~2015) Osteoarthritis Thyroid disorder Surgical History Surgical History History of cardiac cath (~04/22/08) History of colonoscopy (~10/17/07) Hx of cholecystectomy (~2007) S/P triple vessel bypass (~08/02/10) Family History Family History Sibling Family history of cardiovascular disease Family history of coronary artery disease Mother Diabetes mellitus Family history of Alzheimer's disease Family history of coronary artery disease Father Family history of lung cancer Social History Social History Smoking status: Never smoker Second hand tobacco smoke exposure: Yes Alcohol intake: never Substance use: never Substance use type: does not use Living arrangements: with family Occupation/Education: retired Gender identity (if verbalized by the patient): Male Sexual Orientation (if Verbalized by the Patient): Straight or Heterosexual Spiritual care concerns: No Comments At time of signature, I have reviewed and agree with nursing past medical, surgical, social and family history unless otherwise noted. Please see nursing chart for further information. There is no relevant family history pertinent to the presenting complaint Exam Narrative: GENERAL: Well-appearing, well-nourished, and in no acute distress. HEAD: Normocephalic, atraumatic. EYES: EOMI. No redness or drainage. Conjunctivae normal. ENT: Mucous membranes pink and moist. Nares clear. No rhinorrhea. NECK: Normal AROM. CHEST: No respiratory distress. Very slight expiratory wheeze in the left upper lobe, otherwise clear. HEART: Regular
== END 2023-07-31 11:44 | disposition home or self-care (01) ==
PROVIDERS: Emergency Provider Nurse Practitioner; PCP Family Medicine
DX: J18.9 Pneumonia, unspecified organism (principal); I11.9 Hypertensive heart disease without heart failure; Z79.899 Other long term (current) drug therapy; Z79.82 Long term (current) use of aspirin; Z85.528 Personal history of other malignant neoplasm of kidney
CPT/HCPCS: 71046; 99213; G0463

== ENCOUNTER 2023-11-28 11:12 | Outpatient (CLI) | payer MEDICARE, SELFPAY ==
--- NOTE | ~2023-11-28 | US_ITS ---
US thyroid INDICATION: Iodine deficiency. TECHNIQUE: Real-time sonographic images of the thyroid gland were obtained. COMPARISON: No prior studies for comparison. FINDINGS: The right thyroid lobe measures 3.6 x 1.3 x 1.5 cm. The left thyroid lobe measures 3.9 x 1 .1 x 1.0 cm. There is heterogeneous echotexture and echogenicity throughout the thyroid gland. No dis crete nodules identified. Normal vascular flow is present. IMPRESSION: 1. Heterogeneous thyroid without discrete nodule or abnormal vascularity. Reviewed, dictated and finalized at location L.
== END 2023-11-28 11:13 | disposition home or self-care (01) ==
PROVIDERS: PCP Family Medicine; Visit Provider Family Medicine
DX: E01.0 Iodine-deficiency related diffuse (endemic) goiter (principal)
CPT/HCPCS: 76536

== ENCOUNTER 2024-02-23 10:16 | Outpatient (CLI) | payer MEDICARE, SELFPAY ==
--- NOTE | ~2024-02-23 | XR_ITS ---
XR abdomen/kub 1V Ordering provider: Kamilla Moss PA-C History: . CALCULUS OF KIDNEY W CALCULUS OF URETER, HX STONES . Comparison: None. FINDINGS: BOWEL: Nonobstructive bowel gas pattern. ORGANOMEGALY: None. SIGNIFICANT PATHOLOGIC CALCIFICATIONS: Bilateral calcifications seen in the right and left renal area s. OTHER: Status post cholecystectomy. No free air is seen under the diaphragm. IMPRESSION: Bilateral renal stones with no definite ureteric stones. Reviewed, dictated and finalized at location A.
== END 2024-02-23 10:17 | disposition home or self-care (01) ==
LOC: ANHIMG 10:19
PROVIDERS: PCP Family Medicine; Visit Provider Physician Assistant
DX: N20.2 Calculus of kidney with calculus of ureter (principal)
CPT/HCPCS: 74018

== ENCOUNTER 2024-07-31 12:56 | Emergency (ER) | payer MEDICARE, SELFPAY ==
[2024-07-31 13:05] VITALS: BP 87/46; PULSE 76; RESP 16; TEMP 36.2; O2SAT 98
--- NOTE | 2024-07-31 13:05 | ED.GENADULT ---
HPI - General Adult General Chief complaint: Upper Respiratory Infection Stated complaint: diarrhea /vomiting / high blood pressure Time Seen by Provider: 07/31/24 13:10 Source: patient and RN notes reviewed Mode of arrival: ambulatory Limitations: no limitations History of Present Illness HPI narrative: 83-year-old male presents with concern for vomiting and diarrhea that started 4 days ago. He reports his last episode of vomiting was yesterday, his last episode of diarrhea was yesterday with that. He reports he is generally not feeling well so he took his blood pressure which was low at home. He did take his normal blood pressure medication this morning. He denies abdominal pain. He reports he is drinking plenty of fluids. Reports he is urinating about twice a day and it is a normal color. MD complaint: Nausea vomiting diarrhea Related Data Home Medications Medication Instructions Recorded Confirmed aspirin 81 mg tablet,delayed 81 mg PO DAILY 08/15/19 07/31/24 release B-complex with vitamin C 1 tablet PO DAILY 06/22/22 07/31/24 vitamins A,C,D-wftw-yuhpom 4,296 1 cap PO BID 06/22/22 07/31/24 mcg-226 mg-90 mg capsule (PreserVision AREDS) Allergies Allergy/AdvReac Type Severity Reaction Status Date / Time No Known Allergies Allergy Verified 07/31/24 13:06 Review of Systems Review of Systems: CONSTITUTIONAL: Reports malaise. Denies chills, sweats, or fever. EYES: Denies visual changes CARDIOVASCULAR: Denies chest pain, palpitations, or edema. RESPIRATORY: Denies cough or dyspnea. GASTROINTESTINAL: Denies abdominal pain. Reports nausea, vomiting, diarrhea GENITOURINARY: Denies dysuria or hematuria. 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 History of kidney cancer History of kidney stones Hypertension with heart disease IBS (irritable bowel syndrome) IFG (impaired fasting glucose) Macular degeneration, age related, nonexudative Neoplasm of left kidney (~2015) Osteoarthritis Thyroid disorder Surgical History Surgical History History of cardiac cath (~04/22/08) History of colonoscopy (~10/17/07) Hx of cholecystectomy (~2007) S/P triple vessel bypass (~08/02/10) Family History Family History Sibling Family history of cardiovascular disease Family history of coronary artery disease Mother Diabetes mellitus Family history of Alzheimer's disease Family history of coronary artery disease Father Family history of lung cancer Social History Social History Social History: Smoking status: Never smoker Second hand tobacco smoke exposure: Yes Alcohol intake: never Substance use: never Substance use type: does not use Do You Feel Safe in your Home?: Yes Lack of Transportation: No Lack of Food: Never True Current Housing: I Have Housing Concerned About Future Housing: No Difficulty Paying Gas/Electric Bills: No Difficulty Paying for Meds: No Currently Unemployed: YES Education: Don't Know Difficulty w/ Childcare or Family Care: No Living arrangements: with family Occupation/Education: retired Gender identity (if verbalized by the patient): Male Sexual Orientation (if Verbalized by the Patient): Straight or Heterosexual Spiritual care concerns: No Comments At time of signature, agree with nursing past medical, surgical, social and family history. There is no relevant family history pertinent to the presenting complaint Exam Narrative: GENERAL: Nontoxic-appearing, well-nourished, and in no acute distress. HEAD: Normocephalic EYES: PERRLA, conjunctivae clear ENT: Nares clear. Mucous membranes moist. NECK: Supple. No lymphadenopathy CHEST: Clear to auscultation, breath sounds equal. No wheezing, rhonchi, rales, or stridor. No respiratory distress, speaks in full sentences. HEART: Regular rate and rhythm. No murmur heard. ABD: Nontender SKIN: Warm, dry, no rash. Appears jaundiced NEURO: Alert and oriented x3. PSYCH: Normal mood and affect Course Course Emergency Course: Patient is aware of diagnosis, understands and agrees to treatment plan. Anticipatory guidance given. Patient agrees to follow-up as directed and is aware of reasons to seek care at the emergency department. Portions of this record may have been created with voice recognition software Level of Care: Express Care Visit Vital Signs Vital signs: Reviewed. Transfer Transfered to: [facility] Transportation: Other (Private vehicle, driven by his daughter) Transfer rationale: Hypotension, nausea, vomiting, diarrhea, jaundice Accepting physician: Car Critical Care Time Critical Care Time Critical Care Time: No Discharge Plan Discharge Clinical Impression: Acute hypotension Patient Disposition: Acute Care Hospital Condition: Stable Prescriptions: No Action aspirin 81 mg tablet,delayed release (DR/EC) 81 mg PO DAILY B-complex with vitamin C Tablet 1 tablet PO DAILY PreserVision AREDS [id number],[id number] jkrl-cr-[id number] capsule 1 cap PO BID nitroglycerin [Nitrostat] 0.4 mg tablet, sublingual 0.4 mg SUBLINGUAL Q5M PRN (Reason: Chest Pain) Qty: 30 2RF levothyroxine [Euthyrox] 75 mcg tablet 75 mcg PO DAILY Qty: 90 3RF lisinopril 40 mg tablet 40 mg PO DAILY Qty: 90 2RF allopurinol 100 mg tablet 100 mg PO DAILY Qty: 90 2RF atorvastatin 20 mg tablet 20 mg PO DAILY Qty: 90 2RF escitalopram oxalate 10 mg tablet 10 mg PO DAILY Qty: 90 3RF carvedilol 12.5 mg tablet See Rx Instructions .ROUTE .COMPLEX Qty: 180 2RF Dose Instruction: TAKE 1 TABLET BY MOUTH EVERY 12 HOURS WITH MEALS Rx Instructions: TAKE 1 TABLET BY MOUTH EVERY 12 HOURS WITH MEALS amlodipine 10 mg tablet See Rx Instructions .ROUTE .COMPLEX Qty: 90 2RF Dose Instruction: Take 1 tablet by mouth once daily Rx Instructions: Take 1 tablet by mouth once daily finasteride 5 mg tablet 5 mg PO DAILY Qty: 90 2RF Follow-up/Referrals: Jake Granados MD [Primary Care Provider] - Time of Disposition: 13:25
[2024-07-31 13:08] VITALS: BP 87/46; PULSE 76; RESP 16; TEMP 36.2; O2SAT 98
== END 2024-07-31 13:20 | disposition short-term general hospital (02) ==
PROVIDERS: Emergency Provider Nurse Practitioner; PCP Family Medicine
DX: I95.9 Hypotension, unspecified (principal); I10 Essential (primary) hypertension; H35.30 Unspecified macular degeneration; M19.90 Unspecified osteoarthritis, unspecified site; E03.9 Hypothyroidism, unspecified; I25.10 Atherosclerotic heart disease of native coronary artery without angina pectoris; Z95.5 Presence of coronary angioplasty implant and graft; R73.01 Impaired fasting glucose; Z85.528 Personal history of other malignant neoplasm of kidney; Z85.840 Personal history of malignant neoplasm of eye; Z79.82 Long term (current) use of aspirin
CPT/HCPCS: 99212; G0463

== ENCOUNTER 2024-07-31 13:37 | Emergency (ER) | payer MEDICARE, SELFPAY ==
--- NOTE | ~2024-07-31 | CT_ITS ---
EXAMINATION: CT abdomen pelvis w con DATE: 07/31/2024 15:46 INDICATION: Epigastric pain TECHNIQUE: Computed tomography (CT) of the abdomen and pelvis was performed with 100 mL Omnipaque-350 intravenous contrast. Automated exposure control and iterative reconstruction technique were employe d. The dose-length product was 434.48 mGy-cm. COMPARISON: None FINDINGS: Mild bronchiectasis and atelectasis/scarring in the right lower lobe. Heart size is normal. Atheroscl erotic coronary artery calcific location. Aortic valve calcification. No pericardial or pleural effus ion. Small sliding-type hiatal hernia. Mild intrahepatic ductal or ductal dilation which is within normal limits post cholecystectomy with s urgical clips at the gallbladder fossa. 1.4 cm cyst in the right hepatic lobe. Spleen, pancreas and b ilateral adrenal glands are normal. There are bilateral renal cysts the largest on the right measurin g 6.8 cm. Bilateral nonobstructing nephrolithiasis with 7 stones measuring up to 6 mm in the left kid meaghan and 2 stones in the right kidney measuring up to 3 to 4 mm. There is marked diverticulosis along the sigmoid colon with a few additional scattered diverticula al mark the more proximal colon, all without associated inflammatory stranding to suggest diverticulitis. Normal appendix. Wall thickening along a few loops of small bowel in the left abdomen with mild hazi ness to the associated mesenteric fat as well as minimal amount of ascites along the adjacent mesente ry consistent with a local enteritis which is most likely infectious or inflammatory in etiology. The re is a similar degree of mucosal enhancement to the infected and noninfected small bowel which would argue against ischemia. No pneumatosis, abscess or free intraperitoneal gas. Bladder is normal. Prostatomegaly measuring 6.1 x 5.4 cm. No pathologically enlarged abdominal or pel blayne lymphadenopathy. There is calcified atherosclerosis of the normal caliber abdominal aorta and man y of the other arteries without evident hematoma significant stenosis. Mild to moderate bilateral sac roiliac osteoarthritis and mild bilateral hip osteoarthritis. IMPRESSION: 1. Wall thickening and associated inflammatory stranding involving a few loops of nonobstructed small bowel in the left abdomen consistent with an enteritis which is most likely infectious or inflammato ry in etiology. 2. Nonobstructing nephrolithiasis. 3. Prominent sigmoid diverticulosis. 4. Prominent prostatomegaly. 5. Small sliding-type hiatal hernia. Reviewed, dictated and finalized at location A. [employer]ING RESEARCH ANALYST IMPRESSION: 1. Wall thickening and associated inflammatory stranding involving a few loops of nonobstructed small bowel in the left abdomen consistent with an enteritis w hich is most likely infectious or inflammatory in etiology. 2. Nonobstructing nephrolithiasis. 3. Prominent sigmoid diverticulosis. 4. Prominent prostatomegaly. 5. Small sliding-type hiatal hernia.
[2024-07-31 13:40] VITALS: BP 109/44; PULSE 76; RESP 15; TEMP 36.5; O2SAT 97
[2024-07-31 14:14] VITALS: BP 115/51; PULSE 72; RESP 17; TEMP 36.7; O2SAT 97
--- NOTE | 2024-07-31 14:14 | ED.NAVMDI ---
HPI - Nausea/Vomiting/Diarrhea General Chief complaint: Nausea/Vomiting/Diarrhea Stated complaint: hypotensive, n/v/d Time Seen by Provider: 07/31/24 14:11 Source: patient Mode of arrival: ambulatory Limitations: no limitations History of Present Illness HPI Narrative: This is a 83-year-old male who presents to the ED for chief complaint of N/V/D x 3-4 days. Patient reports that he has been with his who has been sick recently and Monday night. Reports that since then he has developed several episodes of N/V and diarrhea every day. Reports intermittent ?flashes of upper abdominal pain but does note that his gallbladder has been previously removed. States he is unable to tolerate solids and is not keeping much fluids down. Denies fevers, chills, back pain, urinary symptoms, GI bleeding symptoms. 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 History of kidney cancer History of kidney stones Hypertension with heart disease IBS (irritable bowel syndrome) IFG (impaired fasting glucose) Macular degeneration, age related, nonexudative Neoplasm of left kidney (~2015) Osteoarthritis Thyroid disorder Surgical History Surgical History History of cardiac cath (~04/22/08) History of colonoscopy (~10/17/07) Hx of cholecystectomy (~2007) S/P triple vessel bypass (~08/02/10) Family History Family History Sibling Family history of cardiovascular disease Family history of coronary artery disease Mother Diabetes mellitus Family history of Alzheimer's disease Family history of coronary artery disease Father Family history of lung cancer Social History Social History Social History: Smoking status: Never smoker Second hand tobacco smoke exposure: Yes Alcohol intake: never Substance use: never Substance use type: does not use Do You Feel Safe in your Home?: Yes Lack of Transportation: No Lack of Food: Never True Current Housing: I Have Housing Concerned About Future Housing: No Difficulty Paying Gas/Electric Bills: No Difficulty Paying for Meds: No Currently Unemployed: YES Education: Don't Know Difficulty w/ Childcare or Family Care: No Living arrangements: with family Occupation/Education: retired Gender identity (if verbalized by the patient): Male Sexual Orientation (if Verbalized by the Patient): Straight or Heterosexual Spiritual care concerns: No Exam Narrative: GENERAL: Well-appearing, well-nourished, and in no acute distress. HEAD: Normocephalic, atraumatic. EYES: PERRLA and EOMI. ENT: Nares clear, no rhinorrhea or epistaxis. Mucous membranes moist. Oropharynx without tonsillar hypertrophy exudate or other lesions. NECK: Supple. No adenopathy or masses. CHEST: No respiratory distress. Clear to auscultation. No wheezes rales or rhonchi HEART: Regular rate and rhythm. No murmur heard. Normal peripheral pulses. ABDOMEN: Soft, nontender, nondistended, normal active bowel sounds. MSK: Normal range of motion. No edema. SKIN: Warm, dry, no rash. NEURO: Alert and oriented x4. No focal deficits. PSYCH: Normal mood and affect. Course Vital Signs Vital signs: Vital Signs Temperature 97.7 F 07/31/24 13:40 Pulse Rate 76 07/31/24 13:40 Respiratory Rate 15 07/31/24 13:40 Blood Pressure 109/44 L 07/31/24 13:40 Pulse Oximetry 97 07/31/24 13:40 Oxygen Delivery Room Air 07/31/24 13:40 Temperature 97.9 F 07/31/24 16:59 Pulse Rate 73 07/31/24 16:59 Respiratory Rate 16 07/31/24 16:59 Blood Pressure 130/73 07/31/24 16:59 Pulse Oximetry 98 07/31/24 16:59 Oxygen Delivery Room Air 07/31/24 13:40 MDM - Nausea/Vomiting/Diarrhea MDM Narrative Medical decision making narrative: This is a a 3-year-old male who presents to the ED for chief complaint of N/V/D. Vitals show initial slight hypotension but otherwise normal. Afebrile. Exam shows minimal abdominal tenderness. No peritoneal signs. Lab work shows a normal white count. CMP shows slightly low potassium and sodium, consistent with volume loss. BUN elevated to 62 with normal creatinine, again indicating dehydration. CT abdomen and pelvis with IV contrast: IMPRESSION: 1. Wall thickening and associated inflammatory stranding involving a few loops of nonobstructed small bowel in the left abdomen consistent with an enteritis which is most likely infectious or inflammatory in etiology. 2. Nonobstructing nephrolithiasis. 3. Prominent sigmoid diverticulosis. 4. Prominent prostatomegaly. 5. Small sliding-type hiatal hernia. Clinically presentation is consistent with gastroenteritis, especially as the patient has been in the hospital recently visiting sick family member. He was given 2 L of fluids, antiemetics and is feeling much improved. He was also given repletion of potassium. On re-evaluation he is stating that he feels well enough to go home. Patient will be discharged in stable condition. Supportive measures discussed and return precautions given. Patient is understanding and agreeable with plan for discharge with PCP follow-up. Lab Data 07/31/24 15:01 07/31/24 15:01 Labs: Lab Results 07/31/24 07/31/24 Range/Units 15:01 16:15 WBC 7.7 (4.5-10.0) K/mm3 RBC 4.10 L (4.6-6.20) M/mm3 Hgb 12.9 L (14.0-18.0) g/dL Hct 38.7 L (42.0-52.0) % MCV 94.4 (80-100) fl MCH 31.5 (26-34) pg MCHC 33.3 (32-36) g/dl RDW 13.2 (11.5-14.5) % Plt Count 125 L (150-375) k/mm3 MPV 11.2 H (7.4-10.4) fl Immature Gran % (Auto) 0.3 (0-0.5) % Neut % (Auto) 74.5 H (45.5-73.1) % Lymph % (Auto) 10.0 L (18.3-44.2) % Page % (Auto) 14.1 H (2.6-8.5) % Eos % (Auto) 0.7 (0-4.4) % Baso % (Auto) 0.4 (0.2-1.2) % Lymph # (Auto) 0.77 L (0.9-3.2) K/mm3 Page # (Auto) 1.1 H (0.1-0.6) K/mm3 Eos # (Auto) 0.1 (0-0.3) K/mm3 Baso # (Auto) 0.0 (0.0-0.1) K/mm3 Abs Immat Gran (auto) 0.02 (0.00-0.031) K/mm3 Absolute Neuts (auto) 5.7 (1.3-6.7) K/mm3 Absolute Nucleated RBC 0.000 (0.0-0.012) K/mm3 Nucleated RBC % 0.0 (0.0-0.2) % % Immature Plt Fraction 4.9 (0.9-11.2) % Sodium 132 L (137-145) mmol/L Potassium 3.2 L (3.4-5.0) mmol/L Chloride 101 (98-107) mmol/L Carbon Dioxide 26 (22-30) mmol/L Anion Gap 5 (4-12) mmol/L BUN 62 H D (9-20) mg/dL Creatinine 1.30 (0.7-1.3) mg/dL Estim Creat Clear Calc 38 ml/min Estimated GFR 53 L (59 - ) Glucose 129 H (65-110) mg/dL Calcium 7.1 L (8.4-10.2) mg/dL Total Bilirubin 1.3 (0.2-1.3) mg/dL Direct Bilirubin 0.0 (0-0.3) mg/dL AST 26 (17-59) U/L ALT 25 (6-50) U/L Alkaline Phosphatase 43 (38-126) U/L Total Protein 5.0 L (6.3-8.2) g/dL Albumin 3.0 L (3.5-5.1) g/dL Lipase 44 (23-300) U/L Urine Color Yellow (Yellow) Urine Appearance Clear (Clear) Urine pH 5.5 (5.0-9.0) Ur Specific [place] 1.017 (1.001-1.035) Urine Protein Negative (Negative) mg/dL Urine Glucose (UA) Negative (Negative) mg/dL Urine Ketones Negative (Negative) mg/dL Ur Blood (Man) Negative (Negative) Urine Nitrate Negative (Negative) Urine Bilirubin Negative (Negative) Urine Urobilinogen 0.2 (<2.0) mg/dL Leukocyte Esterase Rfl Negative (Negative) RUKHSANA/UL Discharge Plan Discharge Clinical Impression: Gastroenteritis Patient Disposition: Home, Self-Care Condition: Stable Instructions: Antibiotic Form, Dehydration (ED), Gastroenteritis (ED) Additional Instructions: Exam and imaging today shows dehydration but no significant findings on the CT scan. Please make sure that you are staying well hydrated with water and electrolytes at home. Zofran has been prescribed for nausea If you have any new or worsening symptoms please return to the ER for further evaluation. Prescriptions: New ondansetron 4 mg tablet,disintegrating 4 mg PO Q8H PRN (Reason: nausea and vomiting) Qty: 10 0RF No Action aspirin 81 mg tablet,delayed release (DR/EC) 81 mg PO DAILY B-complex with vitamin C Tablet 1 tablet PO DAILY PreserVision AREDS [id number] [id number]-gm-kesm capsule 1 cap PO BID nitroglycerin [Nitrostat] 0.4 mg tablet, sublingual 0.4 mg SUBLINGUAL Q5M PRN (Reason: Chest Pain) Qty: 30 2RF levothyroxine [Euthyrox] 75 mcg tablet 75 mcg PO DAILY Qty: 90 3RF lisinopril 40 mg tablet 40 mg PO DAILY Qty: 90 2RF allopurinol 100 mg tablet 100 mg PO DAILY Qty: 90 2RF atorvastatin 20 mg tablet 20 mg PO DAILY Qty: 90 2RF escitalopram oxalate 10 mg tablet 10 mg PO DAILY Qty: 90 3RF carvedilol 12.5 mg tablet See Rx Instructions .ROUTE .COMPLEX Qty: 180 2RF Dose Instruction: TAKE 1 TABLET BY MOUTH EVERY 12 HOURS WITH MEALS Rx Instructions: TAKE 1 TABLET BY MOUTH EVERY 12 HOURS WITH MEALS amlodipine 10 mg tablet See Rx Instructions .ROUTE .COMPLEX Qty: 90 2RF Dose Instruction: Take 1 tablet by mouth once daily Rx Instructions: Take 1 tablet by mouth once daily finasteride 5 mg tablet 5 mg PO DAILY Qty: 90 2RF Follow-up/Referrals: Jake Grnaados MD [Primary Care Provider] - Time of Disposition: 16:50
[2024-07-31] MEDS: MORPHINE SULFATE (*CRX) 4 MG/ML INJ IV PUSH (14:39)
[2024-07-31] MEDS: ONDANSETRON INJ 4 MG/2 ML VIAL IV PUSH (14:39)
[2024-07-31] MEDS: SODIUM CHLORIDE 0.9% IV 1,000 ML 999 ML IV CONT ×2 (14:43→16:13)
[2024-07-31 15:14] LABS: Basophils Percent Auto 0.4 % (0.2-1.2); Eosinophils Absolute Auto 0.1 K/mm3 (0-0.3); Eosinophils Percent Auto 0.7 % (0-4.4); Hematocrit 38.7 % (42.0-52.0); Hemoglobin 12.9 g/dL (14.0-18.0); Immature Granulocyte Absolute 0.02 K/mm3 (0.00-0.031); Immature Granulocyte Percent A 0.3 % (0-0.5); Immature Platelet Fraction Pct 4.9 % (0.9-11.2); Lymphocytes Absolute Auto 0.77 K/mm3 (0.9-3.2); Mean Corpuscular HGB Conc 33.3 g/dl (32-36); Mean Corpuscular Hemoglobin 31.5 pg (26-34); Mean Corpuscular Volume 94.4 fl (80-100); Mean Platelet Volume 11.2 fl (7.4-10.4); Monocytes Absolute Auto 1.1 K/mm3 (0.1-0.6); Monocytes Percent Auto 14.1 % (2.6-8.5); Neutrophils Absolute Auto 5.7 K/mm3 (1.3-6.7); Neutrophils Percent Auto 74.5 % (45.5-73.1); Platelet Count Result 125 k/mm3 (150-375); Red Cell Distribution Width 13.2 % (11.5-14.5); White Blood Count 7.7 K/mm3 (4.5-10.0)
[2024-07-31 15:22] LABS: Alanine Aminotransferase 25 U/L (6-50); Alkaline Phosphatase 43 U/L (38-126); Anion Gap 5 mmol/L (4-12); Aspartate Amino Transferase 26 U/L (17-59); Bilirubin,Total 1.3 mg/dL (0.2-1.3); Blood Urea Nitrogen 62 mg/dL (9-20); Calcium 7.1 mg/dL (8.4-10.2); Carbon Dioxide 26 mmol/L (22-30); Chloride 101 mmol/L (98-107); Estimated CRCL calculation 38 ml/min; Estimated Glomerular Filt Rate 53; Glucose 129 mg/dL (65-110); Lipase 44 U/L (23-300); Potassium 3.2 mmol/L (3.4-5.0); Sodium 132 mmol/L (137-145)
[2024-07-31] MEDS: POTASSIUM CHLORIDE 20 MEQ ER TABLET 40 MEQ PO (16:09)
[2024-07-31 16:13] VITALS: BP 129/52; PULSE 96; RESP 17; TEMP 36.6; O2SAT 96
[2024-07-31 16:25] LABS: Add Urine Microscopic? NO; Appearance Urine Clear (Clear); Bilirubin Urine Negative (Negative); Blood Urine Negative (Negative); Color Urine Yellow (Yellow); Glucose Urine UA Negative (Negative); Ketones Urine Negative (Negative); Leukocyte Esterase Ur Negative LEU/UL (Negative); Nitrate Urine Negative (Negative); Protein Urine Negative (Negative); Specific Grav Ur 1.017 (1.001-1.035); Urobilinogen Urine 0.2 mg/dL (<2.0); pH Urine 5.5 (5.0-9.0)
[2024-07-31 16:59] VITALS: BP 130/73; PULSE 73; RESP 16; TEMP 36.6; O2SAT 98
== END 2024-07-31 17:02 | disposition home or self-care (01) ==
PROVIDERS: Emergency Provider Physician Assistant; PCP Family Medicine
DX: K52.9 Noninfective gastroenteritis and colitis, unspecified (principal); I11.9 Hypertensive heart disease without heart failure; I25.10 Atherosclerotic heart disease of native coronary artery without angina pectoris; H35.3190 Nonexudative age-related macular degeneration, unspecified eye, stage unspecified; M19.90 Unspecified osteoarthritis, unspecified site; E07.9 Disorder of thyroid, unspecified; K58.9 Irritable bowel syndrome, unspecified; Z95.1 Presence of aortocoronary bypass graft; Z85.528 Personal history of other malignant neoplasm of kidney; Z87.442 Personal history of urinary calculi; Z90.49 Acquired absence of other specified parts of digestive tract; N20.0 Calculus of kidney; K57.90 Diverticulosis of intestine, part unspecified, without perforation or abscess without bleeding; N40.0 Benign prostatic hyperplasia without lower urinary tract symptoms; K44.9 Diaphragmatic hernia without obstruction or gangrene
CPT/HCPCS: 36415; 74177; 80048; 80076; 81003; 83690; 85025; 85055; 96361; 96374; 96375; 99284; A9270; J2270; J2405; J7030; Q9967